=== PATIENT | female | born 1955 | race Caucasian/White ===

== ENCOUNTER 2017-11-06 13:56 | Inpatient (IN) | payer OTHER ==
--- NOTE | 2017-11-06 15:24 | EDPHY ---
H & P Time Seen by Provider: 11/06/17 15:23 HPI/ROS: CHIEF COMPLAINT: Left-sided back and leg pain and can't walk HISTORY OF PRESENT ILLNESS: Patient has a long history of sciatica, last MRI was at [facility] in 2017 although she does not know the exact date. She has been having worse sciatica the last 2 days with left hip pain radiating to her left leg and down to her foot which today's severe and intermittent. It is triggered by certain positions and not associated with incontinence or bowel or bladder problems she denies weakness or numbness in her foot on the left side. Over the last 24 hr it has been severe and today she could walk and she was crawling because of the pain was actually stuck on the toilet for 2 hr. She has a physical therapy appointment today but asked her friend to bring her to the ER instead of physical therapy because the pain was too severe. REVIEW OF SYSTEMS: Eye: no change in vision ENT: no sore throat Cardiac: no chest pain or syncope Pulmonary: no cough or SOB Abdomen: no vomiting, diarrhea, abdominal pain Musculoskeletal: HPI Skin: no rash Neuro: HPI Constitutional: no fever : no urinary symptoms A comprehensive 10 point review of systems is otherwise negative aside from elements mentioned in the history of present illness. PAST MEDICAL HISTORY: Includes cholecystectomy, perforated diverticulitis, bowel obstruction Social history: Lives independently, by herself General Appearance: Alert and conversant, cooperative. Eyes: No scleral icterus. ENT, Mouth: Normal mucous membranes. Respiratory: Normal respiratory effort, breath sounds equal, lungs are clear to auscultation. Cardiovascular: Regular rate and rhythm. Gastrointestinal: Abdomen is soft and non tender. Neurological: Alert, face symmetric. Straight leg raising positive on the left -sided 45 degrees, toes downgoing on both sides. Patellar reflex 2+ on the right and 0-1 on the left, ankle reflex 1+ on the right and 0-1 on the left. Patient does have preserved sensation to light touch in both lower extremities. She has normal strength in both lower extremities. Skin: Warm and dry, no rashes. Musculoskeletal: No midline spine tenderness. Psychiatric: Not agitated. Emergency Department course/MDM: Dilaudid 0.5, Toradol 15, dexamethasone 10 mg IV. MRI and admission to hospitalist service with Neurosurgery consultation. Birgit Galeana will consult [id number]. Patient requires admission for severe intractable pain so bad that she has inability to walk and lives by herself. Not safe for discharge. Smoking Status: Former smoker Constitutional: Initial Vital Signs Temperature (C) 37.6 C 11/06/17 14:00 Heart Rate 74 11/06/17 14:00 Respiratory Rate 16 11/06/17 14:00 Blood Pressure 135/60 H 11/06/17 14:00 O2 Sat (%) 91 L 11/06/17 14:00 O2 Delivery Mode Room Air Allergies/Adverse Reactions: ibuprofen Allergy (Verified 11/06/17 16:46) Home Medications: Medication Instructions Recorded Zaleplon [Sonata] 10 mg PO HS 02/06/15 Hydrochlorothiazide [HCTZ (*)] 25 mg PO DAILY 11/06/17 traMADol [Ultram 50 mg (*)] 25 mg PO DAILY PRN 11/06/17 Medical Decision Making Differential Diagnosis: Differential considered including but not limited to muscular strain, sciatica, herniated disc, cauda equina syndrome. Consult/Admit Bed Type: [place] [id number] - Data Points Medications Given: Discontinued Medications Dexamethasone (Decadron Injection) 10 mg IVP EDNOW ONE Stop: 11/06/17 15:50 Last Admin: 11/06/17 16:40 Dose: 10 mg Hydromorphone HCl (Dilaudid) 0.5 mg IVP EDNOW ONE Stop: 11/06/17 15:50 Last Admin: 11/06/17 16:40 Dose: 0.5 mg Ketorolac Tromethamine (Toradol) 15 mg IVP EDNOW ONE Stop: 11/06/17 15:50 Last Admin: 11/06/17 16:39 Dose: 15 mg Departure - Departure Disposition: [facility] Inpatient Acute Clinical Impression: Sciatica of left side Condition: Good
[2017-11-06] MEDS ORDERED: DEXAMETHASONE 10 MG/ML VIAL IVP ONE (15:49)
[2017-11-06] MEDS ORDERED: HYDROmorphONE/DILAUDID 2 MG/ML INJ IVP ONE (15:49)
[2017-11-06] MEDS ORDERED: KETOROLAC 30 MG/1 ML SDV IVP ONE (15:49)
[2017-11-06] MEDS ORDERED: HYDROmorphONE/DILAUDID 1 MG/ML INJ ONE (15:54)
[2017-11-06 16:39] LABS: PLATELET COUNT 224 10^3/uL (150-400)
[2017-11-06] MEDS ORDERED: ONDANSETRON 4 MG/2 ML VIAL IVP PRN (16:41)
[2017-11-06] MEDS ORDERED: ACETAMINOPHEN 325 MG TAB PO PRN (16:41)
[2017-11-06] MEDS ORDERED: ONDANSETRON DISINTEGRATING 4 MG TAB PO PRN (16:41)
[2017-11-06] MEDS ORDERED: HYDROCODONE/APAP 5/325 TAB PO PRN (16:42)
[2017-11-06] MEDS ORDERED: DIAZEPAM 5 MG/ML 1 ML SYR IVP PRN (16:42)
[2017-11-06] MEDS ORDERED: HYDROmorphONE/DILAUDID 1 MG/ML INJ IVP PRN (16:42)
--- NOTE | 2017-11-06 17:08 | GHP ---
[f rep st] HISTORY AND PHYSICAL DATE OF ADMISSION: 11/06/2017 CHIEF COMPLAINT: Buttock pain. HISTORY OF PRESENT ILLNESS: This is a 62-year-old female who presents with severe back pain. She jones s been crawling around for the past 2 days because she has been unable to stand. Described as radiat ing down her left buttock. She got stuck on her toilet last night for hours, during which time, her left leg went numb. She was finally able to get off the toilet, lie down on the floor, and the feeli ng returned to her leg. She has had no incontinence. She is followed at [facility]. She had an MRI about a year ago, which showed a herniated disk, as well as sciatica. She has received injections. The last was about a year ago. Pain is similar to previous, although much more severe than ever bef ore. PAST MEDICAL/SURGICAL HISTORY: 1. Ruptured diverticulitis, status post colectomy. 2. Internal hernia, status post reduction. 3. Lap colectomy. 4. Insomnia. 5. Hypertension. MEDICATIONS: Please see medication reconciliation. ALLERGIES: She tells me she has an allergy to ibuprofen; I am adding this to her allergy list. FAMILY HISTORY: Reviewed and noncontributory. SOCIAL HISTORY: She lives alone. She drinks wine occasionally. She does not smoke. REVIEW OF SYSTEMS: Ten-point review of systems is conducted and is negative, except per HPI. PHYSICAL EXAM: VITAL SIGNS: Blood pressure 135/60, heart rate 74, respiration rate 16, saturating 9 1% on room air. Temperature is 37.6. GENERAL: The patient is a pleasant female who looks quite unc omfortable, sitting up in bed. HEENT: Shows her to be normocephalic, atraumatic. CARDIOVASCULAR: Regular rate and rhythm. No murmurs, rubs, or gallops. PULMONARY: Lungs clear to auscultation bila terally. ABDOMEN: Soft, nontender, nondistended. SKIN: Shows no rash. : Exam shows no White. NEUROLOGIC: Exam shows her to be alert and oriented x3. Her left lower extremity, she has sensatio n to light touch intact. It is slightly different than the right leg. She has a normal patellar ref jemma. Achilles reflexes are difficult given her current position. She has motor that seems to be dim inished in her left lower extremity. It is difficult to tell if this is due to pain or not. PSYCHIA TRIC: Exam shows a normal mood and affect. LABS: CBC shows a hematocrit of 47. White count is normal. Platelets are 224. Basic metabolic rodríguez el is pending. DATA: 1. I discussed with Dr. Gamboa. Will admit to the emergency department. 2. I reviewed her old chart, including her last admission here, during which she had a small bowel o bstruction, requiring an internal hernia reduction. IMPRESSION AND PLAN: 1. Severe back pain: I am unclear if she has any significant neurologic left leg changes. ED repor t was absent reflexes; however, I am finding a patellar reflex. MRI has been ordered. Neurosurgery has been consulted. She will need admission for pain control and neurosurgical evaluation. I have o rdered IV, as well as p.o. narcotics. She also has Valium ordered for muscle spasms. She has an all ergy to ibuprofen. Will hold on NSAIDs. I will schedule Tylenol for now. Further management will d epend on MRI findings. This is a high-risk diagnosis, requiring intravenous narcotics. 2. Venous thromboembolism risk is moderate. I will hold on prophylaxis given the potential need for surgery versus injection. /[id number]/MODL
--- NOTE | 2017-11-06 17:58 | GCON ---
[f rep st] CONSULTATION NEUROSURGICAL CONSULTATION IN THE EMERGENCY DEPARTMENT DATE OF CONSULTATION: 11/06/2017 CHIEF COMPLAINT: Buttock pain and back pain. HISTORY OF PRESENT ILLNESS: This is a 62-year-old female who has a previous history of epidural ster oid injections at unknown level, who was discharged by [facility], transferred to [facility], and she developed, 2 days ago with no inciting event, severe left buttock pain and low back pain. She states that her leg would give out. This appears to be primarily pain limited weakness a s opposed to true weakness for this patient, and she was unable to arise from the toilet and decided to cancel her appointment for today and come straight to the emergency department. She is sitting co mfortably at her bedside and states her pain is minimal and states that when it is at its worst, it i s 8/10. She states that she has some pain in her leg that jumps around and is in no particular derma tomal pattern, but she does have intermittent buttock pain. The pain is always in the buttock but ju mps around the rest of her leg, possibly posterior leg to the knee. However, she also had an episode where her left leg started shaking spontaneously while I was at bedside and then she said that she w as unable to extend her leg. It is unclear secondary to pain or to weakness. She denies any loss of control of bowel or bladder. She states her buttock pain and leg pain is worse than her back pain a nd she has not taken any ibuprofen or Aleve because she had an allergic reaction upon which she had a rash on her back and she was told to stop it. She denies any significant numbness or tingling, alth ough when she states the pain gets very bad, her leg feels weak and numb. She has no symptoms on her right side. PAST MEDICAL HISTORY: Includes ruptured diverticulitis with a colectomy, cholecystectomy, hypertensi on, although she states that she does not feel she has hypertension. She states that her home blood pressure cuff sometimes reaches a systolic of 209 and other times are systolic of 130. I explained t o her that this was in fact hypertension. She has recently been started on antihypertensive for this . PAST SURGICAL HISTORY: As stated. FAMILY HISTORY: Noncontributory. SOCIAL HISTORY: She lives alone. She does not smoke. No alcohol is noted. ALLERGIES: Ibuprofen. HOME MEDICATIONS: Include: 1. Sonata. 2. Zofran. 3. Activella. REVIEW OF SYSTEMS: Complete 10-system review of systems was performed by myself and was negative exc ept as stated above. PHYSICAL EXAM: VITAL SIGNS: Blood pressure is 135/60, heart rate is 74, respiratory rate is 16, sat urating 91% on room air. Temp is 37.6 degrees Celsius. LABORATORY VALUES: White blood cell count 8 .77, hemoglobin 14.7, hematocrit 47.3, platelets are 224. Sodium 143, potassium 4.4, chloride 96, CO 2 of 30, BUN is pending, creatinine 0.7. There is no imaging to review. GENERAL: She is alert and oriented x3. HEENT: Pupils equal, round, reactive to light and accommodation. Extraocular muscles are intact. There is no facial asymmetry or tongue deviation. NEUROLOGIC: Sensation is intact in V 1, V2, V3 distributions of the 5th cranial nerve bilaterally. Strength is 5/5 to bilateral deltoids, biceps, triceps, wrist flexors, extensors, hand intrinsics, although she has Twin sign throughout with give-way throughout secondary to pain. Now, a 5/5 right hip flexor, knee flexion, knee extensi on, dorsiflexors, plantar flexors on the left. She will move her leg spontaneously and freely, but t hen at exam, has giveaway strength or complete Twin signs and Ross sign on the left at all muscl e groups. She had this spontaneous shaking of her left leg which lasted approximately 15 seconds and resolved on its own that she pointed out to me during her history. She has sensation intact to all dermatomal distributions of the upper and lower extremity bilaterally, biceps, brachioradialis, singh lar, and Achilles. She has no Roberto. She has no clonus and she has a positive straight leg point at approximately 2-3 degrees. Again, her pain seemed significantly out of proportion to her exam. Furthermore, she is sitting very comfortably at bedside at this point in time. IMPRESSION AND PLAN: This is a 62-year-old female with buttock pain and back pain and this nondermat omal leg pain with multiple Twin signs, who sitting comfortably in bed and pain appears out of pro portion to exam. At this point in time, I have no imaging to review and would recommend an MRI of th e lumbar spine and would review it after this is complete for further recommendations. Likely, we wo uld recommend in the setting of this pain out of proportion to exam and multiple Twin signs that s he undergo all conservative measures as I have no obvious signs of any neurologic deficit and she has not had any recent conservative therapy. Please call with any changes in neurologic status. /[id number]/MODL
[2017-11-06] MEDS: Zaleplon [Sonata] 10 MG PO SCH (21:58)
[2017-11-06] MEDS: ACETAMINOPHEN 500 MG TAB PO SCH (21:59)
[2017-11-06] MEDS: oxyCODONE IR 5 MG TAB PO PRN (21:59)
[2017-11-06] MEDS: NS 1,000 ML IV SCH (22:00)
[2017-11-07] MEDS: ACETAMINOPHEN 500 MG TAB PO SCH ×3 (08:32→22:19)
[2017-11-07] MEDS: oxyCODONE IR 5 MG TAB PO PRN ×3 (08:33→22:20)
--- NOTE | 2017-11-07 08:46 | NEUSURGPN ---
Assessment/Plan: A: 62 yo female with acute onset of left leg pain and lower back pain P: -MRi lumbar spine reviewed and shows degenerative changes and some mild to moderate foraminal stenosis at L4/5 and L5/S1 that is worse on the left. -Patient's pain is relatively hard to nail down to a specific dermatome but seems most consistent with an S1 or L5 distribution and will try a left sided L5 /S1 TFESI today to see if this helps her pain -Would then recommend continuing full range of conservative therapies including PT, injections, other medications(would try NSAIDs again with benadryl if possible, or could try medrol dose pack and/or gabapentin as well if injection does not help) -Recommend follow up as outpatient after injection -Will continue to follow results of injection -Discussed with Dr. Galeana S: Patient's pain is much more controlled this morning but still having pain in the left > right leg down her buttocks, lateral thigh and into her ankle. Leg pain worse than back pain. O: NAD, VSS alert, awake BLE 5/5 Positive straight leg raise on right Sensation intact to lt touch Negative palpation over SI joint - Physician Discussed Patient with Dr.: Galeana Neurosurgery Physical Exam - Vitals, I&O, Labs I and O 11/06/17 11/07/17 11/08/17 05:59 05:59 05:59 Intake Total 1000 Balance 1000 Weight 72.575 kg Intake: IV Infused (ml) 1000 Other: Number of Voids Colostomy 1 Vital Signs Temp Pulse Resp BP Pulse Ox 36.9 C 64 18 165/91 H 98 11/07/17 07:44 11/07/17 07:44 11/07/17 07:44 11/07/17 07:44 11/07/17 07:44 Laboratory Results 11/06/17 16:32 11/06/17 16:32 ICD10 Worksheet Patient Problems: Problems Problem Status Onset Sciatica of left side Acute SBO (small bowel obstruction) Acute
--- NOTE | 2017-11-07 09:32 | HOSPPROG ---
Hospitalist Progress Note Assessment/Plan: Patient is a 62-year-old female who presented the emergency room with severe back pain. She has been crawling on the ground for 2 days on is able to stand. Today is my 1st encounter with the patient. Chart reviewed. Appreciate neurosurgery seeing her. * acute back pain -reviewed the MRI which showed some mild to moderate foraminal stenosis at L4/ L5 and L5/S1 that is worse on the left. -to get an epidural steroid injection today to see if this helps (will be done tomorrow) -will order outpatient physical therapy -having increase difficulty with ambulation *HTN -recently started on treatment by her PCP *Hx of abdominal surgeries *Plan: to get a steroid injection tomorrow. She lives alone and has difficulty with getting around. Will see how she does w steroid injection Subjective: Radha has no pain while sitting and not moving around. Objective: Vital Signs Temp Pulse Resp BP Pulse Ox 36.9 C 64 18 165/91 H 98 11/07/17 07:44 11/07/17 07:44 11/07/17 07:44 11/07/17 07:44 11/07/17 07:44 Laboratory Results 11/06/17 16:32 11/06/17 16:32 11/06/17 11/07/17 11/08/17 05:59 05:59 05:59 Intake Total 1000 Balance 1000 - Physical Exam Constitutional: uncomfortable Eyes: PERRL Ears, Nose, Mouth, Throat: hearing normal Cardiovascular: regular rate and rhythym Respiratory: no respiratory distress Gastrointestinal: normoactive bowel sounds Skin: warm Neurologic: AAOx3 Psychiatric: interacting appropriately ICD10 Worksheet Patient Problems: Problems Problem Status Onset Sciatica of left side Acute SBO (small bowel obstruction) Acute
--- NOTE | 2017-11-07 10:21 | ASMTCMCOM ---
CM Note CM Note Notes: Patient admitted with acute onset L leg and back pain. Her MRI shows stenosis at L 4/5 and L5/S1. She will have an YOCASTA with IR today. Per neurosurgery, she also will continue a full range of conservative therapies including PT, injections, etc. Patient lives alone and is normally independent. Her discharge needs are TBD. Case Management will follow. Date Signed: 11/07/2017 10:20 AM Electronically Signed By:Marla Alvarenga RN
[2017-11-07] MEDS: HYDROCHLOROTHIAZIDE 25 MG TAB PO SCH (10:43)
[2017-11-07] MEDS: NS 1,000 ML IV SCH ×2 (11:13→22:20)
[2017-11-07] MEDS: Zaleplon [Sonata] 10 MG PO SCH (23:38)
[2017-11-08] MEDS: ACETAMINOPHEN 500 MG TAB PO SCH ×3 (08:49→22:10)
[2017-11-08] MEDS: HYDROCHLOROTHIAZIDE 25 MG TAB PO SCH (08:49)
--- NOTE | 2017-11-08 08:59 | NEUSURGPN ---
Assessment/Plan: A: 62 yo female with acute onset of left leg pain and lower back pain MRI lumbar spine reviewed and shows degenerative changes and some mild to moderate foraminal stenosis at L4/5 and L5/S1 that is worse on the left. -Patient's pain is relatively hard to nail down to a specific dermatome but seems most consistent with an S1 or L5 distribution. IR to proceed with left sided L5/S1 TFESI today -Would then recommend continuing full range of conservative therapies including PT, injections, other medications(would try NSAIDs again with benadryl if possible, or could try medrol dose pack and/or gabapentin as well if injection does not help) -Recommend follow up as outpatient after injection - Ok to discharge home per neurosurgery after injection -Discussed with Dr. Galeana Subjective: Continues to have left leg pain. No right leg pain. Objective: Awake. Alert. PERRL. EOMI Following commands strength full at 5/5 Sensation intact - Physician Discussed Patient with Dr.: Galeana Neurosurgery Physical Exam - Vitals, I&O, Labs I and O 11/07/17 11/08/17 11/09/17 05:59 05:59 05:59 Intake Total 1000 0 Balance 1000 0 Weight 72.575 kg Intake: Oral (ml) 0 IV Infused (ml) 1000 Other: Intake Quantity Yes Sufficient Number of Voids Bedside Commode 1 Colostomy 1 Vital Signs Temp Pulse Resp BP Pulse Ox 36.9 C 60 16 148/83 H 97 11/08/17 08:00 11/08/17 08:00 11/08/17 08:00 11/08/17 08:49 11/08/17 08:00 Laboratory Results 11/06/17 16:32 11/06/17 16:32 ICD10 Worksheet Patient Problems: Problems Problem Status Onset Sciatica of left side Acute SBO (small bowel obstruction) Acute
[2017-11-08] MEDS ORDERED: IOPAMIDOL (ISOVUE-M 300) 15 ML VIAL ONE (10:51)
[2017-11-08] MEDS ORDERED: TRIAMCINOLONE ACETONIDE 200 MG/5 ML MDV IM ONE (10:51)
--- NOTE | 2017-11-08 11:50 | HOSPPROG ---
Hospitalist Progress Note Assessment/Plan: Patient is a 62-year-old female who presented the emergency room with severe back pain. She has been crawling on the ground for 2 days on is able to stand. * acute back pain -reviewed the MRI which showed some mild to moderate foraminal stenosis at L4/ L5 and L5/S1 that is worse on the left. -to get an epidural steroid injection today to see if this helps -will order outpatient physical therapy -having increase difficulty with ambulation *HTN -recently started on treatment by her PCP *concern for cognitive issues -will ask ST to see -she is forgetful about many things we discussed *Hx of abdominal surgeries *Plan: steroid injection today. The patient lives alone and I'm concerned she doesn't have much of a support system. She has trouble with remembering conversations we had, will ask ST to do a cognitive evaluation to be sure she is okay to return home. If the steroid injection helps her back pain and ST say she is ok, will likely dc tomorrow. Subjective: Radha is tearful and anxious about the procedure. Objective: Vital Signs Temp Pulse Resp BP Pulse Ox 36.7 C 52 L 16 150/69 H 98 11/08/17 11:31 11/08/17 11:31 11/08/17 11:31 11/08/17 11:31 11/08/17 11:31 Laboratory Results 11/06/17 16:32 11/06/17 16:32 11/07/17 11/08/17 11/09/17 05:59 05:59 05:59 Intake Total 1000 0 Balance 1000 0 - Physical Exam Constitutional: appears nourished, not in pain Eyes: PERRL Ears, Nose, Mouth, Throat: hearing normal Cardiovascular: regular rate and rhythym Respiratory: no respiratory distress Gastrointestinal: normoactive bowel sounds Skin: warm Musculoskeletal: generalized weakness Neurologic: AAOx3 Psychiatric: anxious, poor memory ICD10 Worksheet Patient Problems: Problems Problem Status Onset Sciatica of left side Acute SBO (small bowel obstruction) Acute
[2017-11-08] MEDS: oxyCODONE IR 5 MG TAB PO PRN ×2 (13:46→21:11)
[2017-11-08] MEDS: Zaleplon [Sonata] 10 MG PO SCH (21:10)
[2017-11-09] MEDS: oxyCODONE IR 5 MG TAB PO PRN ×4 (01:42→20:44)
[2017-11-09] MEDS: NS 1,000 ML IV SCH (04:25)
[2017-11-09] MEDS: HYDROCHLOROTHIAZIDE 25 MG TAB PO SCH (08:31)
[2017-11-09] MEDS: ACETAMINOPHEN 500 MG TAB PO SCH ×3 (08:31→20:46)
--- NOTE | 2017-11-09 11:58 | HOSPPROG ---
Hospitalist Progress Note Assessment/Plan: Patient is a 62-year-old female who presented the emergency room 11/06with severe back pain. She has been crawling on the ground for 2 days on was unable to stand. Today is my 1st encounter with the patient. Chart reviewed. Appreciate neurosurgery seeing her. * acute back pain -reviewed the MRI which showed some mild to moderate foraminal stenosis at L4/ L5 and L5/S1 that is worse on the left which does correlate to area of pain -YOCASTA yesterday -notes some improvement -will order outpatient physical therapy -still having some difficulty with ambulation *HTN -recently started on treatment by her PCP -BPs have been fairly consistently elevated -will add Amlodipine to med regimen *Hx of abdominal surgeries *Plan: pt still having some difficulty with ambulation. Will await another day to determine if responsive enough to YOCASTA or whether further procedures need to be undertaken. Subjective: Still L Objective: Vital Signs Temp Pulse Resp BP Pulse Ox 98.7 F 66 16 180/77 H 90 L 11/09/17 11:27 11/09/17 11:27 11/09/17 11:27 11/09/17 11:27 11/09/17 11:27 Laboratory Results 11/06/17 16:32 11/06/17 16:32 11/08/17 11/09/17 11/10/17 05:59 05:59 05:59 Intake Total 0 2335 Balance 0 2335 ICD10 Worksheet Patient Problems: Problems Problem Status Onset SBO (small bowel obstruction) Acute Sciatica of left side Acute
--- NOTE | 2017-11-09 13:07 | NEUSURGPN ---
Assessment/Plan: Assessment/Plan: A: 62 yo female with acute onset of left leg pain and lower back pain MRI lumbar spine reviewed and shows degenerative changes and some mild to moderate foraminal stenosis at L4/5 and L5/S1 that is worse on the left. -Patient's pain is relatively hard to nail down to a specific dermatome but seems most consistent with an S1 or L5 distribution. IR performed left sided L5/S1 TFESI yesterday, perpatient has some improved left leg pain thus far but still has buttocks pain. Able to move left leg more without as much pain -Would then recommend continuing full range of conservative therapies including PT, injections, other medications(would try NSAIDs again with benadryl if possible, or could try medrol dose pack and/or gabapentin as well if injection does not help) -Recommend follow up as outpatient after injection - Ok to discharge home per neurosurgery -Discussed with Dr. Healy, will follow up with Dr. Galeana in 3-4 weeks Subjective: Patient with somewhat improved left leg pain and has more mobility. Continues to have left buttock pain. Objective: Awake. Alert. PERRL. EOMI Following commands strength full at 5/5 Sensation intact - Physician Discussed Patient with Dr.: Healy Neurosurgery Physical Exam - Vitals, I&O, Labs I and O 11/08/17 11/09/17 11/10/17 05:59 05:59 05:59 Intake Total 0 2335 Balance 0 2335 Intake: Oral (ml) 0 300 IV Intake (ml) 2035 Other: Intake Quantity Yes Yes Sufficient Number of Voids Bedside Commode 1 1 Vital Signs Temp Pulse Resp BP Pulse Ox 37.1 C 66 16 180/77 H 90 L 11/09/17 11:27 11/09/17 11:27 11/09/17 11:27 11/09/17 11:27 11/09/17 11:27 Laboratory Results 11/06/17 16:32 11/06/17 16:32 ICD10 Worksheet Patient Problems: Problems Problem Status Onset Sciatica of left side Acute SBO (small bowel obstruction) Acute
[2017-11-09] MEDS: amLODIPine BESYLATE 5 MG TAB PO SCH (14:55)
--- NOTE | 2017-11-09 15:49 | PDMN ---
Medical Necessity Medical necessity: C/M review: Patient meets INPT criteria under MCG M-63 Back Pain: Acute and persistent severe back pain, MRI showed mild to moderate foraminal stenosis at L4 / L5 and L5 / S1 that is worse on the left which correlates to area of pain requiring Neurosurgery consult, epidural steroid injection 11/08/2017 with minimal improvement, acute and persistent difficulty with ambulation with 4 wheeled walker, requiring assistance with mobility, ADLs , failed PT/OR evals- patient gait is with left heel elevated due to left thigh pain and left sided back / hip , patient states cannot place left foot flat due to pain, poor oral intake, elevated BP's - 180/77requiring ongoing IV NS 75 ml/ hr.infusion, oral Tylenol / Oxycodone for pain, initiate Amlopidine daily, acute inpt PT/OT/ST, comorbid hypertension - patient recently started on treatment by her PCP. PA anticipates > 2 MN LOS for ongoing med nec for eval and TX of above.
--- NOTE | 2017-11-09 15:59 | ASMTCMCOM ---
CM Note CM Note Notes: Spoke w/pt re; dc poc. PT/OT recommending SNF/HC. Pt declines SNF and states she has support of friends to help her at home, does not want homecare. CM advised pt that we can set up home care should she change her mind. Pt states she plans on getting back to work. CM available for any changes. DC Plan: Independent Date Signed: 11/09/2017 03:59 PM Electronically Signed By:Tamela Walsh RN
[2017-11-09] MEDS: Zaleplon [Sonata] 10 MG PO SCH (20:46)
[2017-11-10] MEDS: oxyCODONE IR 5 MG TAB PO PRN ×4 (07:44→21:23)
[2017-11-10] MEDS: amLODIPine BESYLATE 5 MG TAB PO SCH (07:55)
[2017-11-10] MEDS: HYDROCHLOROTHIAZIDE 25 MG TAB PO SCH (07:55)
--- NOTE | 2017-11-10 09:15 | HOSPPROG ---
Hospitalist Progress Note Assessment/Plan: Patient is a 62-year-old female who presented the emergency room 11/06with severe back pain. She has been crawling on the ground for 2 days on was unable to stand. Today is my 1st encounter with the patient. Chart reviewed. Appreciate neurosurgery seeing her. * acute back pain -reviewed the MRI which showed some mild to moderate foraminal stenosis at L4/ L5 and L5/S1 that is worse on the left which does correlate to area of pain -YOCASTA 2 days ago -notes some improvement but had severe pain through the night -will order outpatient physical therapy -still having some difficulty with ambulation *HTN -recently started on treatment by her PCP -BPs have been fairly consistently elevated -Amlodipine added yesterday *mild hypoxia -likely related to atelectasis -IS encouraged *Hx of abdominal surgeries *Plan: pt still having some difficulty with ambulation. Pt feels she is unable to care for herself. She does not have the adaptive equipment yet for her home. Subjective: Had pain through the night. Had to use bedpan due to difficulty getting up. Objective: Vital Signs Temp Pulse Resp BP Pulse Ox 97.4 F 54 L 16 165/83 H 97 11/10/17 08:00 11/10/17 08:00 11/10/17 08:00 11/10/17 08:00 11/10/17 08:00 - Physical Exam Constitutional: no apparent distress, appears nourished Eyes: PERRL, anicteric sclera Ears, Nose, Mouth, Throat: hearing normal Gastrointestinal: normoactive bowel sounds, soft, non-tender abdomen ICD10 Worksheet Patient Problems: Problems Problem Status Onset SBO (small bowel obstruction) Acute Sciatica of left side Acute
[2017-11-10] MEDS: ACETAMINOPHEN 500 MG TAB PO SCH ×3 (10:48→19:32)
--- NOTE | 2017-11-10 13:16 | ASMTCMCOM ---
CM Note CM Note Notes: CM met with patient, she states she is very fearful of falling at home without having supportive equipment. Patient states she is open to Home Health/PT. Patient has list of community resources to help with the supportive equipment, patient will call friend Penny to pick her up when she is ready. Will have friends in the neighborhood to support her and who will be contacting [employer] to see if they can get a walker. CM to place order for HH. Patient states she has appointment tomorrow newly established PCP Luisana Thomas. CM placed referrals to [facility] and [facility], CM spoke with Isela at [facility] and they should be able to open on Saturday for PT. CM to follow. D/C plan: D/C Today or tomorrow with Home Health PT. Date Signed: 11/10/2017 01:15 PM Electronically Signed By:Veronica Cole
[2017-11-10] MEDS: Zaleplon [Sonata] 10 MG PO SCH (19:33)
[2017-11-11] MEDS: oxyCODONE IR 5 MG TAB PO PRN ×2 (01:04→08:13)
[2017-11-11] MEDS: HYDROCHLOROTHIAZIDE 25 MG TAB PO SCH (08:12)
[2017-11-11] MEDS: ACETAMINOPHEN 500 MG TAB PO SCH (08:12)
[2017-11-11] MEDS: amLODIPine BESYLATE 5 MG TAB PO SCH (08:12)
--- NOTE | 2017-11-11 08:19 | HOSPPROG ---
Hospitalist Progress Note Assessment/Plan: Patient is a 62-year-old female who presented the emergency room 11/06with severe back pain. She has been crawling on the ground for 2 days on was unable to stand. * acute back pain -reviewed the MRI which showed some mild to moderate foraminal stenosis at L4/ L5 and L5/S1 that is worse on the left which does correlate to area of pain - s/p YOCASTA 2 -pain is better -has friends who will give her good support *HTN -recently started on treatment by her PCP -BPs have been fairly consistently elevated -Amlodipine added yesterday *mild hypoxia -likely related to atelectasis -IS encouraged -resolved *Hx of abdominal surgeries *Plan: dc home w home care Subjective: Radha has some pain but says tramadol has helped in the past. Feels ready for dc. Objective: Vital Signs Temp Pulse Resp BP Pulse Ox 37.0 C 58 L 16 155/85 H 97 11/10/17 22:30 11/10/17 22:30 11/10/17 22:30 11/10/17 22:30 11/10/17 22:30 - Physical Exam Constitutional: no apparent distress, appears nourished Eyes: PERRL Ears, Nose, Mouth, Throat: hearing normal Respiratory: no respiratory distress Skin: warm Neurologic: AAOx3 Psychiatric: interacting appropriately ICD10 Worksheet Patient Problems: Problems Problem Status Onset Sciatica of left side Acute SBO (small bowel obstruction) Acute
[2017-11-11] MEDS ORDERED: traMADol 50 MG TAB PO PRN (08:52)
[2017-11-11 08:55] VITALS: BP 159/81
--- NOTE | 2017-11-11 09:52 | PDIAF ---
- Diagnosis Diagnosis: acute back pain, lumbar stenosis, htn Code Status: Full Code - Medication Management Discharge Medications: Medications to Continue on Transfer Zaleplon [Sonata] 10 mg PO HS 02/06/15 [Last Taken 11/04/17] Hydrochlorothiazide [HCTZ (*)] 25 mg PO DAILY 11/06/17 [Last Taken 11/04/17] Acetaminophen [Tylenol ES 500 mg (*)] 1,000 mg PO TID tab 11/11/17 [Last Taken Unknown] amLODIPine BESYLATE [Norvasc 5 mg (*)] 5 mg PO DAILY #30 tab 11/11/17 [Last Taken Unknown] traMADol [Ultram 50 mg (*)] 25 mg PO QID PRN #30 tab 11/11/17 [Last Taken Unknown] Discharge Medications: Refer to the Discharge Home Medication list for PRN reason. - Orders Services needed: Home Care, Registered Nurse, Physical Therapy, Occupational Therapy Home Care Face to Face: I certify that this patient was under my care and that I had the required [id number] encounter meeting the encounter requirements on the discharge day. My findings support the fact that the patient is homebound as defined in Home Care Face to Face Continued: CMS Chapter 7 Medicare Benefits Manual 30.1.1 , The condition of the patient is such that there exists a normal inability to leave home and consequently, leaving home would require a considerable and taxing effort. Diet Recommendation: no restrictions on diet Diet Texture: Regular Texture Diet Additional Instructions: prescriptions were sent to Alona'jean here at [facility] Norvasc is a new blood pressure medication added to your home regimen take Tylenol scheduled 3 x day until you get better - Follow Up Care Current Providers and Referrals: Gloria Galeana DO [Doctor of Osteopathy] - (Follow up in 4 weeks ) Luisana Mayen MD [Primary Care Provider] - As per Instructions
--- NOTE | 2017-11-11 10:32 | GDS ---
[f rep st] DISCHARGE SUMMARY DISCHARGE DIAGNOSES: 1. Acute back pain with noted stenosis. 2. Hypertension. 3. Mild hypoxemia. 4. History of abdominal surgeries. CONSULTATION: Dr. Gloria Galeana. HISTORY: Briefly, the patient is a 62-year-old female who presented to the emergency room for severe back pain. She had been crawling on the ground for 2 days and was able to stand. During her stay, she had an epidural steroid injection. Her pain is better today. She will be discharged home with [facility] and further followup with Dr. Galeana. HOSPITAL COURSE: 1. Acute back pain. The MRI showed some mild to moderate foraminal stenosis at L4-L5 and L5-S1 that is worse and correlates to the area of pain. She is status post steroid injection. 2. Hypertension. She was started on treatment by her primary care provider. Norvasc has been added with better control of her blood pressure. 3. Mild hypoxemia, resolved. DISCHARGE CONDITION: Stable. Blood pressure is 159/81. Heart rate is 69. Respiratory rate of 15. O2 saturation on room air 91%. Temperature 37.1 Celsius. DISCHARGE MEDICATIONS: Please see the EMR. DISCHARGE INSTRUCTIONS: 1. To follow up with PT and OT. Recommendation is for her to return to work when they clear her. 2. To continue scheduled Tylenol until her pain is better. 3. To let her primary care provider know about her addition of blood pressure medication. 4. If she develops fever, chills, chest pain, shortness of breath, or incontinence of urine or stool , to return to the ER. /[id number]/MODL
--- NOTE | 2017-11-11 10:33 | ASDISCHSUM ---
Discharge Information Plan Status:Home with Home Health Medically Cleared to Leave:11/11/2017 Discharge Date:11/11/2017 CM D/C Disposition: ADT D/C Disposition:Home Health Service Projected Discharge Date:11/11/2017 11:00 AM Transportation at D/C: Discharge Delay Reason: Follow-Up Date:11/11/2017 11:00 AM Discharge Slot: Final Diagnosis: Placement Information Referral Type:*Home Health Care Services Referral ID:[id number] Provider Name:[facility] Address 1[address] [facility] [address] Address 2: City:[place] Selection Factors: State:[place] Patient Contact Information Contact Name:JORGE LUIS Relationship: Address: [address] City:[place] Alternate Phone: State/Zip Code:[place] [address] Email: Financial Information [facility] Desc:[facility] Primary Plan Number:[id number] Secondary Plan Desc: Secondary Plan Number: Assessment Information LACE LACE Length of stay for Answers: 4-6 days current admission Acuity / Level of Answers: Yes Care: Did the patient have an inpatient admission? # of Emergency department Answers: 1-2 visits in the last 6 months Score: 8 Date Signed: 11/11/2017 10:32 AM Electronically Signed By:SIMON Ann [facility] CM Progress Note CM Note CM Note Notes: Patient admitted with acute onset L leg and back pain. Her MRI shows stenosis at L 4/5 and L5/S1. She will have an YOCASTA with IR today. Per neurosurgery, she also will continue a full range of conservative therapies including PT, injections, etc. Patient lives alone and is normally independent. Her discharge needs are TBD. Case Management will follow. Date Signed: 11/07/2017 10:20 AM Electronically Signed By:Marla Alvarenga RN [facility] CM Progress Note CM Note CM Note Notes: Spoke w/pt re; dc poc. PT/OT recommending SNF/HC. Pt declines SNF and states she has support of friends to help her at home, does not want homecare. CM advised pt that we can set up home care should she change her mind. Pt states she plans on getting back to work. CM available for any changes. DC Plan: Independent Date Signed: 11/09/2017 03:59 PM Electronically Signed By:Tamela Walsh RN [facility] Progress Note CM Note CM Note Notes: CM met with patient, she states she is very fearful of falling at home without having supportive equipment. Patient states she is open to Home Health/PT. Patient has list of community resources to help with the supportive equipment, patient will call friend Penny to pick her up when she is ready. Will have friends in the neighborhood to support her and who will be contacting [employer] to see if they can get a walker. CM to place order for HH. Patient states she has appointment tomorrow newly established PCP Luisana Thomas. CM placed referrals to [facility] and [facility], CM spoke with Isela at [facility] and they should be able to open on Saturday for PT. CM to follow. D/C plan: D/C Today or tomorrow with Home Health PT. Date Signed: 11/10/2017 01:15 PM Electronically Signed By:Veronica Cole Case Management Discharge Plan Note Case Management Discharge Discharge Order Complete? Answers: Yes Patient to Obtain Answers: via Family Medications Transportation Arranged Answers: Family/Friends EMTALA Complete Answers: No Case Management Transport Answers: No Form Complete Faxed Final Orders Answers: Yes Agency/Facility Transfer Answers: Yes Report Printed & Faxed to Receiving Agency Family Notified Answers: No Discharge Comments Notes: CM spoke to BRUNA Francis and FERNANDA Hamilton regarding d/c POC. Pt is being discharged today. CM met w/ pt for dispo planning. CM informed pt that [facility] is able to accept. Pt is agreeable to using [facility]. CM notified [facility]. CM provided BRUNA Fracnis w/ phone number to give report. CM available for changes. Plan: BC; PT, BRUNA CHI Date Signed: 11/11/2017 10:31 AM Electronically Signed By:SIMON Ann Intervention Information
== END 2017-11-11 15:56 | disposition home health service (06) | DRG 552 ==
LOC: F3E 19:43 → UNDODISOB 11-07 20:10 → OBSVTOIN 11-09 15:21
PROVIDERS: ADMIT Student in an Organized Health Care Education/Training Program; ATTEND Student in an Organized Health Care Education/Training Program
DX: M51.17 Intervertebral disc disorders with radiculopathy, lumbosacral region (principal); M48.061 Spinal stenosis, lumbar region without neurogenic claudication; I10 Essential (primary) hypertension; G47.00 Insomnia, unspecified
CPT/HCPCS: 92523-GN; 96374; 97116-GP; 97161-GP; 97165-GO; 97530-GO; 97530-GP; 97535-GO; G0378; J1100; J1170; J1885; J3301; J3360; Q9967

== ENCOUNTER → 2018-02-20 | Outpatient (CLI) | payer OTHER | LOC: BMCIMAGING 10:17 | PROVIDERS: ATTEND Internal Medicine Endocrinology, Diabetes & Metabolism | DX: M85.89 Other specified disorders of bone density and structure, multiple sites (principal); Z96.642 Presence of left artificial hip joint ==